=== PATIENT | male | born 2005 | race Caucasian/White ===

== ENCOUNTER 2025-01-10 21:16 | Emergency (ER) | payer SELFPAY ==
--- NOTE | ~2025-01-10 | XR_ITS ---
XR ankle RT min 3V 01/10/2025 21:31 Indication: Right ankle injury Procedure: 4 views right ankle Comparison: No prior studies for comparison. Findings: Moderate lateral soft tissue swelling. No fracture or traumatic malalignment. Ankle mortise intact. Benign-appearing sclerotic lesion of the distal aspect of the tibia noted. Impression: 1: No acute fracture. Moderate lateral soft tissue swelling. Reviewed, dictated and finalized at location O. Impression: 1: No acute fracture. Moderate lateral soft tissue swelling.
[2025-01-10 21:17] VITALS: BP 147/70; PULSE 89; RESP 18; TEMP 36.7; O2SAT 100
[2025-01-10 21:40] VITALS: BP 133/82; PULSE 92; RESP 16; O2SAT 99
--- NOTE | 2025-01-10 21:49 | ED_ITS ---
HPI - Extremity Injury (Lower) General Chief Complaint: Extremity Injury, Lower Stated Complaint: Injury to right ankle-twisted it Time Seen by Provider: 01/10/25 21:27 Source: patient Mode of arrival: ambulatory Limitations: no limitations History of Present Illness HPI Narrative: This is a 19-year-old male that presents to the emergency department right ankle pain after an injury tonight. Reports he twisted the ankle playing volleyball. Reports swelling laterally. Denies decreased range of motion or numbness. Related Data Allergies Allergy/AdvReac Type Severity Reaction Status Date / Time No Known Allergies Allergy Verified 01/10/25 21:22 Review of Systems Review of Systems: All systems reviewed & are unremarkable except as noted in HPI and below PMFSH Past Medical History Medical History (Updated 01/10/25 @ 21:51 by Sherly Ruano PA-C) No active medical problems Exam Narrative: GENERAL: Well-appearing, well-nourished, and in no acute distress. HEAD: Normocephalic, atraumatic. EYES: EOMI. EXTREMITIES: Normal range of motion. No obvious deformity. Normal DP pulse. Normal sensation. Swelling about the right lateral malleoli SKIN: Warm, dry, no rash. NEURO: No focal deficits. Alert and oriented x3. PSYCH: Normal mood and affect Course Vital Signs Vital signs: Vital Signs Temperature 98.1 F 01/10/25 21:17 Pulse Rate 89 01/10/25 21:17 Respiratory Rate 18 01/10/25 21:17 Blood Pressure 147/70 H 01/10/25 21:17 Pulse Oximetry 100 01/10/25 21:17 Oxygen Delivery Room Air 01/10/25 21:17 Temperature 98.1 F 01/10/25 21:17 Pulse Rate 92 01/10/25 21:40 Respiratory Rate 16 01/10/25 21:40 Blood Pressure 133/82 01/10/25 21:40 Pulse Oximetry 99 01/10/25 21:40 Oxygen Delivery Room Air 01/10/25 21:17 Procedures Orthopedic Splinting/Casting Injury #1: Splinting/Casting Date: 01/10/25 Splinting/Casting Time: 21:54 Side: right Lower Extremity Injury Location: ankle Lower Extremity Immobilizer: Alfredito wrap Pre-Procedure Neuro Vascular Exam: normal Post-Procedure Neuro Vascular Exam: normal Other Orthopedic Equipment: crutches MDM - Extremity Injury (Lower) MDM Narrative Medical decision making narrative: Patient presents to the emergency department for right ankle injury. He is neurovascularly. Right ankle x-ray without acute osseous abnormalities. Patient placed in Alfredito wrap and given crutches. Instructed on further care of ankle sprain. He is to follow up with primary provider. He was given warnings to return to the ER Differential Diagnosis Differential diagnosis: Likely ankle sprain and strain and ankle fracture Imaging Data Radiologist's impression: ITS Impressions Ankle X-Ray 01/10/25 21:37 Impression: 1: No acute fracture. Moderate lateral soft tissue swelling. Critical Care Time Critical Care Time Critical Care Time: No Discharge Plan Discharge Clinical Impression: Ankle sprain and strain Patient Disposition: Home Condition: Stable Instructions: Ankle Sprain (ED) Additional Instructions: Return to the ER if you experience fever, redness and swelling of your extremity, numbness or any other symptoms that are concerning to you Wear ALFREDITO wrap and use crutches. No weight on the affected leg until able to bear weight without pain. Ice and elevate extremity. Pain medication as needed and directed. Follow up with your doctor for further care. Patient Language: [place] Follow-up/Referrals: Lalo Guerra MD [Physician, Family Practice] PHYSICIAN,[employer] [Primary Care Provider, Internal Medicine]
== END 2025-01-10 22:18 | disposition home or self-care (01) ==
LOC: ANHED 22:04
PROVIDERS: Emergency Provider Physician Assistant
DX: S93.401A Sprain of unspecified ligament of right ankle, initial encounter (principal); S96.911A Strain of unspecified muscle and tendon at ankle and foot level, right foot, initial encounter; X50.9XXA Other and unspecified overexertion or strenuous movements or postures, initial encounter; Y93.68 Activity, volleyball (beach) (court)
CPT/HCPCS: 73610; 99283